=== PATIENT | female | born 1985 | race Two or more races ===

== ENCOUNTER 2019-11-08 17:57 | Emergency (ER) | payer SELFPAY ==
[2019-11-08] MEDS ORDERED: ACETAMINOPHEN 325 MG TABLET PO ONE (20:51)
[2019-11-08] MEDS ORDERED: PENICILLIN G BENZATHINE 1.2 MILLION UNIT/2 ML DISP.SYRIN IM ONE (22:44)
--- NOTE | 2019-11-08 22:48 | ER Document Report ---
HPI - HPI Time Seen by Provider: 11/08/19 22:02 Pain Level: 4 Context: Patient is a 34-year-old female who presents emergency department with a chief complaint of a sore throat. Patient states that her sore throat started yesterday. Patient states that she has had a sore throat since last night. States that she has had some fevers. Denies any chest pain or shortness of breath. Patient reports a traveled from [place] to [place] recently. She does not know if she has had any contact with anybody who has tested positive for COVID-19. Denies any past medical history. She does not take any medication. - ROS Systems Reviewed and Negative: Yes All other systems reviewed and negative - CONSTITUTIONAL Constitutional: REPORTS: Fever - EENT EENT: REPORTS: Sore Throat - NEURO Neurology: REPORTS: Headache - REPRODUCTIVE Reproductive: DENIES: : - DERM Skin Color: Normal Skin Problems: None Past Medical History - Social History Smoking Status: Never Smoker Frequency of alcohol use: None Drug Abuse: None Family History: Reviewed & Not Pertinent Patient has homicidal ideation: No Vertical Provider Document - CONSTITUTIONAL Agree With Documented VS: Yes Exam Limitations: No Limitations General Appearance: No Apparent Distress - HEENT HEENT: Atraumatic, Normocephalic, PERRLA, Pharyngeal Exudate, Pharyngeal Tenderness, Pharyngeal Erythema. negative: Conjuctival Injection, Tympanic Membrane Red, Tympanic Membrane Bulging - NECK Neck: Normal Inspection - RESPIRATORY Respiratory: Breath Sounds Normal, No Respiratory Distress - CARDIOVASCULAR Cardiovascular: Regular Rhythm, Tachycardia Pulses: Normal: Radial - GI/ABDOMEN Gastrointestinal: Abdomen Soft, Abdomen Non-Tender - MUSCULOSKELETAL/EXTREMETIES Musculoskeletal/Extremeties: FROM - NEURO Level of Consciousness: Awake, Alert, Appropriate Motor/Sensory: No Motor Deficit, No Sensory Deficit - DERM Integumentary: Warm, Dry, No Rash Course - Re-evaluation Re-evalutation: 11/08/19 Rapid strep test was negative. Culture has been sent. Patient's physical exam, she has pharyngeal exudate. Will treat her with penicillin. We will also test the patient for COVID-19, as she just traveled from [place]. Patient is in agreement with this plan. Follow-up precautions were given. Verbal discharge instructions were given to the patient. They verbalized understanding. They are stable for discharge. - Vital Signs Vital signs: Temp Pulse Resp BP Pulse Ox 101.5 F H 106 H 16 107/66 100 11/08/19 20:30 11/08/19 18:00 11/08/19 18:00 11/08/19 18:00 11/08/19 18:00 Discharge - Discharge Clinical Impression: Sore throat, Suspected COVID-19 virus infection Fever Qualifiers: Fever type: unspecified Qualified Code(s): R50.9 - Fever, unspecified Condition: Stable Disposition: HOME, SELF-CARE Additional Instructions: You were seen today in emergency department for a fever and a sore throat. You were treated with penicillin to treat your sore throat. Please make sure you continue to take Tylenol for fever. You are also being tested for COVID-19. Make sure you self isolate at home. Wash your hands. The health department will call you with your results.
[2019-11-08 23:59] VITALS: BP 102/59
== END 2019-11-09 00:20 | disposition home or self-care (01) ==
LOC: ER 17:57
DX: J02.9 Acute pharyngitis, unspecified (principal); R50.9 Fever, unspecified; R51 Headache; Z20.828 Contact with and (suspected) exposure to other viral communicable diseases
CPT/HCPCS: 99283; 96372; 87070; 87880; 87635; J0561; C9803